=== PATIENT | female | born 1960 | race Caucasian/White ===

== ENCOUNTER 2018-09-29 08:03 | Day surgery (SDC) | payer OTHER ==
[2018-09-28 11:59] VITALS: BMI 25.7
[2018-09-29] MEDS ORDERED: Midazolam 2 MG/2 ML VIAL ONE (09:10)
[2018-09-29] MEDS ORDERED: Propofol 10 mg/ml Inj (20 ML) ONE ×5 (09:10→11:39)
[2018-09-29] MEDS ORDERED: Lidocaine Hydrochloride 10 ML INJ ONE (09:27)
[2018-09-29] MEDS ORDERED: ceFAZolin 1 gm in NS 1 GM/100 ML BAG IVPB ONE (09:27)
[2018-09-29] MEDS ORDERED: Bupivacaine 0.25% 20 ML INJ IJ ONE (09:27)
[2018-09-29] MEDS ORDERED: Bupivacaine HCl 0.25% PF (10 ml) Inj ONE (11:42)
[2018-09-29] MEDS ORDERED: Morphine 4 MG/ML VIAL ONE (11:49)
[2018-09-29] MEDS ORDERED: Triamcinolone Acetonide 40 mg/mL Inj ONE (11:50)
[2018-09-29] MEDS ORDERED: HYDROmorphone 0.5 mg/0.5 ml ISec IVP PRN (12:12)
--- NOTE | 2018-09-29 12:19 | PCM.SURG1 ---
Surgeon's Initial Post Op Note - Surgeon's Notes Surgeon: Dr. Haven Porter DPM Substance Abuse Counselor: Dr. Ita Pacheco DPM PGY-3 Type of Anesthesia: IV Sedation, Local Anesthesia Administered By: Dr. Mcleod Pre-Operative Diagnosis: failure of hardware with displacement of osteotomy 1st metatarsal Left foot Operative Findings: see operative note Post-Operative Diagnosis: same Operation Performed: 1) removal hardware 1st metatarsal left foot. 2) open reduction with internal fixation of capital fragment 1st metatarsal L foot Specimen/Specimens Removed: screw 1st met left foot Estimated Blood Loss: EBL {In ML}: 2 Blood Products Given: N/A Drains Used: No Drains Post-Op Condition: Good Date of Surgery/Procedure: 09/29/18 Time of Surgery/Procedure: 09:00
[2018-09-29] MEDS ORDERED: Oxycodone/Acetaminophen 5/325 mg Tab PO PRN (12:22)
[2018-09-29 14:18] VITALS: O2SAT 100
[2018-09-29 14:58] VITALS: BP 157/72; PULSE 70; RESP 18; TEMP 98
--- NOTE | 2018-10-02 08:00 | OP ---
PROCEDURE DATE: 09/29/2018 SURGEON: Haven Porter DPM BASIC COMBATANT SWIMMER: Mariluz Pacheco DPM, PGY-3 SOLAR ELECTRIC INSTALLER: Gypsy Lew MD ANESTHESIA: IV with local. PREOPERATIVE DIAGNOSIS: Failure of hardware with displacement of osteotomy, first metatarsal left foot. POSTOPERATIVE DIAGNOSIS: Failure of hardware with displacement of osteotomy, first metatarsal left foot. PROCEDURES: 1. Removal of hardware, first metatarsal left foot. 2. Open reduction with internal fixation of capital fragment, first metatarsal left foot. INDICATIONS: The patient is a 58-year-old female with the above-mentioned diagnosis. Of note, the patient did have a bunion surgery of the left foot two weeks prior to today's date; however, subsequent radiographs in the office have shown displacement of the hardware at the osteotomy site. The decision was made to bring the patient back to the operating room to repair the fixation. The patient has exhausted all conservative treatment measures now and requires surgical intervention. The patient signed the consent after careful explanation of all risks, benefits, complications, and alternatives for surgical procedure. No guarantees were given nor implied. N.p.o. status was confirmed prior to taking the patient into the operating room. PREPARATION: The patient was brought into the operating room and placed on the operating room table in a supine position. A well-padded pneumatic ankle tourniquet was placed to the patient's left ankle with plenty of Webril cast padding. After induction of IV sedation, the patient received a total of 20 mL of 1:1 mixture consisting of 0.25% Marcaine plain with 1% lidocaine plain in local block fashion to the patient's left foot. Once local anesthesia was achieved, the left foot was then prepped and draped in the usual manner. Esmarch bandage was utilized to exsanguinate the patient's left foot, and the tourniquet was then inflated to 250 mmHg and the procedure began. PROCEDURE #1: Removal of hardware, first metatarsal left foot: Our attention was directed to the patient's dorsal medial aspect of the left foot over the first metatarsophalangeal joint where a previous local well-coapted incision could be appreciated. A #15 blade was used to remove all the Monocryl sutures from the incision site. Next, the tissue layers were carefully dissected taking care to avoid all vital neurovascular structures. All bleeders were cauterized and ligated as necessary. Next, the sutures within the capsular tissue were then removed. The capsular tissue incision was inverted out, was then crushing at this time down to the level of bone. At this time, a 2.0 Synthes screw could be appreciated at the osteotomy site and was removed and passed from the operative field. The osteotomy site did not appear to be fused at this time. The surgical site was flushed with copious amounts of sterile normal saline solution. PROCEDURE #2: Open reduction with internal fixation of capital fragment first metatarsal left foot: At this time, the capital fragment of the previous osteotomy of the metatarsal head was then repositioned and realigned into a corrected more anatomic position. The capital fragment was then impacted into the proximal aspect of the metatarsal. Intraoperative fluoroscopy was utilized to make sure correct apposition of the capital fragment at this time which appeared to be excellent. Next, a 2.0 fully threaded Steinmann pin was then inserted across the osteotomy site from proximal medial plantar to dorsal distal lateral across the osteotomy site with excellent compression achieved. A plier cutter was then utilized to cut the Steinmann pin flush to the bone. Range of motion was now checked at the first metatarsophalangeal joint which appeared to be excellent at this time. The surgical site was flushed with copious amounts of sterile normal saline solution. The capsular tissue was reapproximated using 2-0 and 3-0 Vicryl. The subcuticular tissue was reapproximated using a 4-0 Vicryl, and skin edges were reapproximated using a 4-0 Prolene suture. The surgical site was dressed with Betadine-soaked Adaptic. Additional 10 mL of 0.25% Marcaine plain was injected to the incision site. The incision was then dressed with 4x4s, Ankit, and a well-padded below-knee bivalve fiberglass cast was placed at the patient's left lower extremities with the foot dorsiflexed to 90 degrees in relation to the leg. POSTOPERATIVE CONDITION: The patient tolerated the procedure well with no apparent complications or complaints. The patient was escorted from the OR to the recovery room where vital signs stable and neurovascular structures intact to the patient's left foot. The patient was instructed on strictly nonweightbearing. Postoperatively, the patient will follow up with Dr. Porter in the office within one week. Mariluz Pacheco DPM Haven Porter DPM MARYAM
== END 2018-09-29 15:17 | disposition home or self-care (01) ==
LOC: C.SDS 08:03
PROVIDERS: ATTEND Podiatrist Sports Medicine
DX: T84.293A Other mechanical complication of internal fixation device of bones of foot and toes, initial encounter (principal)
CPT/HCPCS: 20680; 28308; J0690; J1170; J2250; J2270; J2704; J3010